=== PATIENT | male | born 1965 | race Caucasian/White ===

== ENCOUNTER → 2022-08-08 09:53 | Outpatient (CLI) | payer OTHER, SELFPAY ==
--- NOTE | ~2022-08-08 | MR_ITS ---
EXAMINATION: MR cervical spine wo con DATE: 08/08/2022 10:34 INDICATION: Neck pain. TECHNIQUE: Magnetic resonance imaging (MRI) of the cervical spine was performed without intravenous c ontrast. Sequences included sagittal T2-weighted FSE, sagittal T2-weighted FS FSE, sagittal T1-weight ed FSE, axial MERGE, and axial T2-weighted FSE. COMPARISON: Cervical spine radiographs 11/09/2018 FINDINGS: There is 7 degrees dextrocurvature of cervical spine. There is 2 mm retrolisthesis of C5 on C6 and C6 on C7. There is mild chronic anterior wedging of C5 vertebral body. There is mildly decrea sed disc height at C3-C4 and C4-C5, severely decreased disc height at C5-C6 and C6-C7, and mildly dec reased disc height at C7-T1 with endplate remodeling. The spinal cord signal intensity is normal. The following disc levels are specifically discussed: C2-C3: The disc does not extend beyond the endplate margin. There is moderate left uncovertebral join t osteoarthritis. There is severe bilateral facet joint osteoarthritis. There is mild right and moder ate left neural foraminal stenosis. There is no central canal stenosis. C3-C4: The disc is bulging. There is mild right and severe left uncovertebral joint osteoarthritis. T here is moderate right and severe left facet joint osteoarthritis. There is mild right and severe lef t neural foraminal stenosis. There is mild central canal stenosis. C4-C5: The disc is bulging. There is moderate bilateral uncovertebral joint osteoarthritis. There is severe right and moderate left facet joint osteoarthritis. There is moderate right and mild left neur al foraminal stenosis. There is mild central canal stenosis. C5-C6: The disc is bulging. There is severe bilateral uncovertebral joint osteoarthritis. There is mo derate bilateral facet joint osteoarthritis. There is moderate right and severe left neural foraminal stenosis. There is mild central canal stenosis. C6-C7: The disc is bulging. There is severe bilateral uncovertebral joint osteoarthritis. There is se julee right and moderate left facet joint osteoarthritis. There is moderate bilateral neural foraminal stenosis. There is mild central canal stenosis. C7-T1: There is a central extrusion. There is no uncovertebral joint osteoarthritis. There is severe bilateral facet joint osteoarthritis. There is no neural foraminal stenosis. There is no central tu l stenosis. IMPRESSION: 1. Cervical spondylosis. Reviewed, dictated and finalized at location E. FITS ADMINISTRATOR IMPRESSION: 1. Cervical spondylosis.
== END ==
PROVIDERS: PCP Internal Medicine
DX: M47.892 Other spondylosis, cervical region (principal)
CPT/HCPCS: 72141

== ENCOUNTER 2024-05-20 08:56 | Outpatient (CLI) | payer OTHER, SELFPAY ==
--- NOTE | ~2024-05-20 | MR_ITS ---
EXAMINATION: MR shoulder LT wo con DATE: 05/20/2024 09:37 INDICATION: Chronic left shoulder pain with limited range of motion TECHNIQUE: Magnetic resonance imaging (MRI) of the left shoulder was performed without intravenous co ntrast. Sequences included axial PD-weighted FS FSE, coronal oblique PD-weighted FS FSE, coronal obli que T2-weighted FS FSE, sagittal PD-weighted FS FSE, and sagittal T1-weighted SE. COMPARISON: None. FINDINGS: Coracoacromial arch: The acromion undersurface is minimally curved in morphology (type I-II). The coracoacromial ligament is normal. Mild acromioclavicular osteoarthritis. Rotator cuff: Occipital space, infraspinatus and subscapularis tendinopathy without discrete tear. The teres minor tendon is normal. Normal rotator cuff muscle bulk and signal. Biceps tendon, glenoid labrum and glenohumeral cartilage: Mild tendinopathy and longitudinal split tearing of the intra-articular long head biceps tendon. Adva nced glenohumeral osteoarthritis with extensive full thickness cartilage loss and secondary remodelin g with loss of bone stock of the humeral head and glenoid. This results in mild retroversion of the g lenoid. There are also large marginal osteophytes along the anteromedial aspect of the humeral head w hich fill a large portion of the axillary recess. There is diffuse degenerative tearing of the glenoi d labrum which appears partially detached and frayed with macerated appearance along the superior and posterior glenoid and largely absent along the anterior and inferior glenoid. Fluid: Moderate-sized glenohumeral joint effusion with proportional extension of fluid along the long head b iceps tendon sheath. Small loose osteochondral bodies in the long head biceps tendon sheath at the ax illary recess of the joint space. Large osteochondral body essentially filling the deep subscapular r ecess. No abnormal increased fluid signal in the subacromial/subdeltoid bursa to suggest bursitis. Bones: Hypertrophic change with mild marrow edema along the floor of the cephalad aspect of the intertubercu lar groove. No fracture or pathologic marrow replacing process. IMPRESSION: 1. Advanced left glenohumeral osteoarthritis with diffuse degenerative tearing of the glenoid labrum and likely reactive moderate sized joint effusion. 2. Mild super space, infraspinatus and subscapular tendinopathy without discrete tear. 3. Mild tendinopathy and longitudinal split tearing of the intra-articular long head biceps tendon. Reviewed, dictated and finalized at location A. IMPRESSION: 1. Advanced left glenohumeral osteoarthritis with diffuse degenerative tearing of the glenoid labrum and likely reactive moderate sized joint effusion. 2. Mild super space, infraspinatus and subscapular tendinopathy without discret e tear. 3. Mild tendinopathy and longitudinal split tearing of the intra-articular long head biceps tendon.
== END 2024-05-20 08:57 | disposition home or self-care (01) ==
PROVIDERS: PCP Nurse Practitioner Family; Visit Provider Specialist
DX: S43.432A Superior glenoid labrum lesion of left shoulder, initial encounter (principal); S46.892A Other injury of other muscles, fascia and tendons at shoulder and upper arm level, left arm, initial encounter; S46.122A Laceration of muscle, fascia and tendon of long head of biceps, left arm, initial encounter; X58.XXXA Exposure to other specified factors, initial encounter; M19.012 Primary osteoarthritis, left shoulder
CPT/HCPCS: 73221